=== PATIENT | female | born 1980 | race Caucasian/White ===

== ENCOUNTER 2017-06-30 10:31 | Outpatient (CLI) | payer BC, OTHER ==
[~2017-06-30] VITALS: Ht 165.1 cm; Wt 106.6 kg
[2017-06-30] MEDS ORDERED: NALT1TAB PO (10:45)
[2017-06-30] MEDS ORDERED: AMIT25TA9 PO (10:45)
[2017-06-30] MEDS ORDERED: MULT-35 PO (10:45)
[2017-06-30 10:47] VITALS: BP 116/80
== END 2017-06-30 11:01 | disposition home or self-care (01) ==
LOC: PREOP 10:31
PROVIDERS: ATTEND Podiatrist Foot & Ankle Surgery
DX: Z01.818 Encounter for other preprocedural examination (principal); Z11.2 Encounter for screening for other bacterial diseases; M20.11 Hallux valgus (acquired), right foot
CPT/HCPCS: 87081

== ENCOUNTER 2017-07-25 06:16 | Day surgery (SDC) | payer BC, OTHER ==
[~2017-07-25] VITALS: Ht 165.1 cm; Wt 106.6 kg
[2017-07-25 06:00] VITALS: BP 125/88
[~2017-07-25 06:16] MED LIST: AMIT25TA9 PO; MULT-35 PO; NALT1TAB PO
--- OUTSIDE RECORDS SUMMARY | 2017-07-25 06:20 | XMS REPORT ---
Author Author ARLEEN ESPINOZA [facility] eClinicalWorks Address Unknown Phone Unavailable Care Team Providers Care Dairy Husbandman Name Role Phone ARLEEN ESPINOZA CP Unavailable Allergies, Adverse Reactions, Alerts Substance Reaction Event Type N.K.D.A. Info Not Available Non Drug Allergy Problems Problem Type Condition Code Onset Dates Condition Status Problem Hallux valgus M20.10 Active Problem Chest pain, unspecified R07.9 Active Problem Excessive and frequent menstruation N92.0 Active Problem Headache R51 Active Problem Dysfunction of eustachian tube H69.80 Active Problem Family history of diabetes mellitus Z83.3 Active Problem Generalized anxiety disorder F41.1 Active Problem Major depressive disorder, recurrent, moderate F33.1 Active Problem Obesity, unspecified E66.9 Active Problem Episodic mood disorder F39 Active Assessment History of depression Z86.59 Active Assessment BMI 27.0-27.9,adult Z68.27 Active Assessment Family history of diabetes mellitus Z83.3 Active Assessment Labial abscess N76.4 Active Assessment Well woman exam Z01.419 Active Assessment Headache R51 Active Problem Encounter for dental examination Z01.20 Active Medications Medication Code System Code Instructions Start Date End Date Status Dosage Contrave [facility] 24864275270 8-90MG TAKE TWO TABLETS BY MOUTH TWICE DAILY Amitriptyline HCl [facility] 87102185805 10 MG TAKE ONE TABLET BY MOUTH DAILY Procedures Procedure Coding System Code Date Preventive Care Est Pt. Age 18-39 CPT-4 27001 Aug 28, 2015 Vital Signs Date/Time: Aug 28, 2015 Temperature 97.0 F Weight 193.7 lbs Height 70 in BMI 27.79 Index Blood Pressure Diastolic 76 mmHg Blood Pressure Systolic 122 mmHg Cardiac Monitoring Heart Rate 84 bpm Results No Known Results Summary Purpose eClinicalWorks Submission
--- OUTSIDE RECORDS SUMMARY | 2017-07-25 06:20 | XMS REPORT ---
Author Author MILTON SHELTON [facility] Address Unknown Care Team Providers Care Mobile Solutions Architect Name Role Phone MILTON SHELTON Unavailable PROBLEMS Type Condition ICD9-CM Code [id number] Code Onset Dates Condition Status SNOMED Code Problem Chest pain, unspecified R07.9 Active 24448018 Problem Major depressive disorder, recurrent, moderate F33.1 Active 489889961 Problem Generalized anxiety disorder F41.1 Active 024588583 Problem Dental examination Z01.20 Active 104849193 Problem Headache associated with hormonal factors G44.89 Active 82805098 Problem Family history of diabetes mellitus Z83.3 Active 582680721 Problem Obesity, unspecified E66.9 Active 677206364 Problem Jaw pain, non-TMJ R68.84 Active 312616187 Problem Headache R51 Active 996771554 Problem Hallux valgus M20.10 Active 620444765 Problem Dysfunction of eustachian tube H69.80 Active 68489266 Problem Excessive and frequent menstruation N92.0 Active 903073100 Problem Encounter for dental examination Z01.20 Active 896194105 Problem Episodic mood disorder F39 Active 70972448 ALLERGIES Substance Reaction Event Type Date Status N.K.D.A. Unknown Non Drug Allergy May, Unknown SOCIAL HISTORY No smoking Hx information available PLAN OF CARE Activity Details Follow Up prn Reason:impression for crown #2 VITAL SIGNS Blood pressure systolic 125 mmHg 2016-06-16 Blood pressure diastolic 89 mmHg 2016-06-16 MEDICATIONS Medication Instructions Dosage Frequency Start Date End Date Duration Status Contrave 8-90MG TAKE TWO TABLETS BY MOUTH TWICE DAILY 30 Active Chlorhexidine Gluconate 0.12 % as directed 7 days Active Amitriptyline HCl 10 MG TAKE TWO TABLETS BY MOUTH ONCE DAILY 30 Active Amoxicillin 500 MG Orally 3 times a day 1 capsule 8h 26 May, 2016 Jun, 10 day(s) Active RESULTS No Results PROCEDURES Procedure Date Ordered Related Diagnosis Body Site Dental no charge Jun 16, 2016 IMMUNIZATIONS No Known Immunizations
--- OUTSIDE RECORDS SUMMARY | 2017-07-25 06:20 | XMS REPORT ---
Author Author MILTON SHELTON [facility] Address Unknown Care Team Providers Care Precision Dancer Name Role Phone MILTON SHELTON Unavailable PROBLEMS Type Condition ICD9-CM Code EZA80-BK Code Onset Dates Condition Status SNOMED Code Problem Chest pain, unspecified R07.9 Active 88833646 Problem Major depressive disorder, recurrent, moderate F33.1 Active 693300256 Problem Generalized anxiety disorder F41.1 Active 080208788 Problem Dental examination Z01.20 Active 687681292 Problem Headache associated with hormonal factors G44.89 Active 72669710 Problem Family history of diabetes mellitus Z83.3 Active 691856555 Problem Obesity, unspecified E66.9 Active 686185033 Problem Jaw pain, non-TMJ R68.84 Active 583076063 Problem Headache R51 Active 738832097 Problem Hallux valgus M20.10 Active 642842843 Problem Dysfunction of eustachian tube H69.80 Active 85272150 Problem Excessive and frequent menstruation N92.0 Active 575211888 Problem Encounter for dental examination Z01.20 Active 858224707 Problem Episodic mood disorder F39 Active 70189043 ALLERGIES No Known Allergies SOCIAL HISTORY Never Assessed PLAN OF CARE Activity Details Follow Up 3 Weeks Reason:CROWN SEAT VITAL SIGNS Blood pressure systolic 118 mmHg 2016-09-03 Blood pressure diastolic 81 mmHg 2016-09-03 MEDICATIONS Medication Instructions Dosage Frequency Start Date End Date Duration Status Contrave 8-90MG Orally Twice a day 2 tablets 12h Active Chlorhexidine Gluconate 0.12 % as directed 7 days Active Amitriptyline HCl 10 MG TAKE TWO TABLETS BY MOUTH ONCE DAILY 30 Active RESULTS No Results PROCEDURES Procedure Date Ordered Result Body Site Dental no charge Sep 03, 2016 IMMUNIZATIONS No Known Immunizations MEDICAL (GENERAL) HISTORY Type Description Date Medical History tmj Surgical History Broken RT Leg/ giselle in lower leg 10/2000 Hospitalization History Hospitalization for surgery only
--- OUTSIDE RECORDS SUMMARY | 2017-07-25 06:20 | XMS REPORT ---
Author MADDIE Mondragon Organization eClinicalWorks Address Unknown Phone Unavailable Care Team Providers Care Mva Operator Name Role Phone MADDIE HOLMAN CP Unavailable Allergies, Adverse Reactions, Alerts Substance Reaction Event Type N.K.D.A. Info Not Available Non Drug Allergy Problems Problem Type Condition Code Onset Dates Condition Status Problem Chest pain, unspecified R07.9 Active Problem Generalized anxiety disorder F41.1 Active Problem Major depressive disorder, recurrent, moderate F33.1 Active Problem Jaw pain, non-TMJ R68.84 Active Problem Family history of diabetes mellitus Z83.3 Active Problem Headache associated with hormonal factors G44.89 Active Problem Obesity, unspecified E66.9 Active Problem Episodic mood disorder F39 Active Problem Headache R51 Active Problem Dysfunction of eustachian tube H69.80 Active Assessment Sore throat J02.9 Active Problem Encounter for dental examination Z01.20 Active Problem Hallux valgus M20.10 Active Problem Excessive and frequent menstruation N92.0 Active Medications Medication Code System Code Instructions Start Date End Date Status Dosage Amoxicillin [facility] [address]-94 500 MG Orally 3 times a day Jun 12, 2016 Jun 22, 2016 1 capsule Contrave [facility] 42946946472 8-90MG TAKE TWO TABLETS BY MOUTH TWICE DAILY Amitriptyline HCl [facility] [address]-05 10 MG TAKE TWO TABLETS BY MOUTH ONCE DAILY Procedures Procedure Coding System Code Date Office Visit, Est Pt., Level 3 CPT-4 58108 Jun 12, 2016 STREP A ASSAY W/OPTIC CPT-4 08912 Jun 12, 2016 Vital Signs Date/Time: Jun 12, 2016 Cardiac Monitoring Heart Rate 86 bpm Weight 211 lbs Height 70 in BMI 30.27 Index Blood Pressure Diastolic 68 mmHg Blood Pressure Systolic 116 mmHg Results Name Result Date Reference Range Unit Abnormality Flag STREP A (IN HOUSE) ----STREP A Positive [id number] ----Control + [id number] ----Lot # [id number] ----Exp date 01/16/[id number] Summary Purpose eClinicalWorks Submission
--- OUTSIDE RECORDS SUMMARY | 2017-07-25 06:20 | XMS REPORT ---
Author Author MILTON SHELTON [facility] Address Unknown Care Team Providers Care Medical Billing Specialist Name Role Phone MILTON SHELTON Unavailable PROBLEMS Type Condition ICD9-CM Code TUL88-JJ Code Onset Dates Condition Status SNOMED Code Problem Chest pain, unspecified R07.9 Active 59881181 Problem Major depressive disorder, recurrent, moderate F33.1 Active 021752623 Problem Generalized anxiety disorder F41.1 Active 641722448 Problem Dental examination Z01.20 Active 234229345 Problem Headache associated with hormonal factors G44.89 Active 14412724 Problem Family history of diabetes mellitus Z83.3 Active 979517547 Problem Obesity, unspecified E66.9 Active 286109641 Problem Jaw pain, non-TMJ R68.84 Active 325309170 Problem Headache R51 Active 193839688 Problem Hallux valgus M20.10 Active 417270997 Problem Dysfunction of eustachian tube H69.80 Active 57657067 Problem Excessive and frequent menstruation N92.0 Active 750698471 Problem Encounter for dental examination Z01.20 Active 393795342 Problem Episodic mood disorder F39 Active 63492693 ALLERGIES No Known Allergies SOCIAL HISTORY Never Assessed PLAN OF CARE VITAL SIGNS MEDICATIONS Medication Instructions Dosage Frequency Start Date End Date Duration Status Amitriptyline HCl 10 MG TAKE TWO TABLETS BY MOUTH ONCE DAILY 30 Active Chlorhexidine Gluconate 0.12 % as directed 7 days Active Contrave 8-90MG Orally Twice a day 2 tablets 12h Active RESULTS No Results PROCEDURES Procedure Date Ordered Result Body Site Dental no charge Sep 10, 2016 IMMUNIZATIONS No Known Immunizations MEDICAL (GENERAL) HISTORY Type Description Date Medical History tmj Surgical History Broken RT Leg/ giselle in lower leg 10/2000 Hospitalization History Hospitalization for surgery only
--- OUTSIDE RECORDS SUMMARY | 2017-07-25 06:20 | XMS REPORT ---
Author Author MILTON SHELTON [facility] Address Unknown Care Team Providers Care Social Staff Worker Name Role Phone MILTON SHELTON Unavailable PROBLEMS Type Condition ICD9-CM Code PZY17-DQ Code Onset Dates Condition Status SNOMED Code Problem Chest pain, unspecified R07.9 Active 47461035 Problem Major depressive disorder, recurrent, moderate F33.1 Active 166923912 Problem Generalized anxiety disorder F41.1 Active 987012105 Problem Dental examination Z01.20 Active 159122526 Problem Headache associated with hormonal factors G44.89 Active 81637650 Problem Family history of diabetes mellitus Z83.3 Active 399654603 Problem Obesity, unspecified E66.9 Active 130542332 Problem Jaw pain, non-TMJ R68.84 Active 750102279 Problem Headache R51 Active 396688281 Problem Hallux valgus M20.10 Active 600440147 Problem Dysfunction of eustachian tube H69.80 Active 18707156 Problem Excessive and frequent menstruation N92.0 Active 525190890 Problem Encounter for dental examination Z01.20 Active 131812043 Problem Episodic mood disorder F39 Active 46923795 ALLERGIES Substance Reaction Event Type Date Status N.K.D.A. Unknown Non Drug Allergy Jun, Unknown SOCIAL HISTORY No smoking Hx information available PLAN OF CARE Activity Details Follow Up seat crown #2 Reason: VITAL SIGNS Heart Rate 103 bpm 2016-07-07 Blood pressure systolic 133 mmHg 2016-07-07 Blood pressure diastolic 81 mmHg 2016-07-07 MEDICATIONS Medication Instructions Dosage Frequency Start Date End Date Duration Status Chlorhexidine Gluconate 0.12 % as directed 7 days Active Amitriptyline HCl 10 MG TAKE TWO TABLETS BY MOUTH ONCE DAILY 30 Active Contrave 8-90MG TAKE TWO TABLETS BY MOUTH TWICE DAILY 30 Active RESULTS No Results PROCEDURES Procedure Date Ordered Related Diagnosis Body Site Dental no charge Jul 07, 2016 IMMUNIZATIONS No Known Immunizations
--- OUTSIDE RECORDS SUMMARY | 2017-07-25 06:20 | XMS REPORT ---
Author Author DIPAK WARNER [facility] Address [address] [place] [address] Care Team Providers Care Core Shaper Name Role Phone DIPAK WARNER Unavailable PROBLEMS Type Condition ICD9-CM Code VYO33-JY Code Onset Dates Condition Status SNOMED Code Problem Generalized anxiety disorder F41.1 Active 880577189 Problem Obesity, unspecified E66.9 Active 395815982 Problem Episodic mood disorder F39 Active 76722863 Problem Dental examination Z01.20 Active 363320710 Problem Headache associated with hormonal factors G44.89 Active 81649023 Problem Headache R51 Active 957663162 Problem Dysfunction of eustachian tube H69.80 Active 39053707 Problem Jaw pain, non-TMJ R68.84 Active 264642373 Problem Family history of diabetes mellitus Z83.3 Active 281884550 Problem Hallux valgus M20.10 Active 142252301 Problem Excessive and frequent menstruation N92.0 Active 014778296 Problem Chest pain, unspecified R07.9 Active 95597516 Problem Encounter for dental examination Z01.20 Active 988591805 Problem Major depressive disorder, recurrent, moderate F33.1 Active 023848820 ALLERGIES Substance Reaction Event Type Date Status N.K.D.A. Unknown Non Drug Allergy Jun, Unknown SOCIAL HISTORY No smoking Hx information available PLAN OF CARE Activity Details Follow Up prn Reason: VITAL SIGNS Height 70 in 2016-07-13 Weight 215 lbs 2016-07-13 Temperature 98.2 degrees Fahrenheit 2016-07-13 Heart Rate 100 bpm 2016-07-13 Respiratory Rate 18 2016-07-13 BMI 30.85 kg/m2 2016-07-13 Blood pressure systolic 118 mmHg 2016-07-13 Blood pressure diastolic 78 mmHg 2016-07-13 MEDICATIONS Medication Instructions Dosage Frequency Start Date End Date Duration Status Chlorhexidine Gluconate 0.12 % as directed 7 days Active Amitriptyline HCl 10 mg Orally Once a day 2 tablets 24h Active Contrave 8-90MG Orally Twice a day 2 tablets 12h Active Nystatin-Triamcinolone 279092-8.1 UNIT/GM Externally Twice a day 1 application to affected area 12h Jun, Active RESULTS No Results PROCEDURES Procedure Date Ordered Related Diagnosis Body Site Office Visit, Est Pt., Level 3 Jul 13, 2016 IMMUNIZATIONS No Known Immunizations
--- OUTSIDE RECORDS SUMMARY | 2017-07-25 06:20 | XMS REPORT ---
Author Author ARLEEN ESPINOZA [facility] eClinicalWorks Address Unknown Phone Unavailable Care Team Providers Care Siebel Administrator Name Role Phone ARLEEN ESPINOZA Unavailable Allergies, Adverse Reactions, Alerts Substance Reaction Event Type N.K.D.A. Info Not Available Non Drug Allergy Problems Problem Type Condition Code Onset Dates Condition Status Assessment Vaginal burning N94.9 Active Problem Hallux valgus M20.10 Active Problem Encounter for dental examination Z01.20 Active Problem Obesity, unspecified E66.9 Active Problem Episodic mood disorder F39 Active Problem Dysfunction of eustachian tube H69.80 Active Problem Chest pain, unspecified R07.9 Active Problem Excessive and frequent menstruation N92.0 Active Problem Generalized anxiety disorder F41.1 Active Problem Major depressive disorder, recurrent, moderate F33.1 Active Assessment Screening for malignant neoplasm of cervix Z12.4 Active Assessment Lower abdominal tenderness R10.819 Active Assessment Vaginal discharge N89.8 Active Assessment Vaginal irritation N89.8 Active Medications Medication Code System Code Instructions Start Date End Date Status Dosage Flagyl [facility] [address]-70 500 MG Orally 2 times a day Aug 04, 2015 Aug 11, 2015 1 tablet Amitriptyline HCl [facility] 09720234603 10 MG TAKE ONE TABLET BY MOUTH DAILY Contrave [facility] 65079927439 8-90MG TAKE TWO TABLETS BY MOUTH TWICE DAILY Procedures Procedure Coding System Code Date CULTURE, BACTERIA, OTHER CPT-4 96188 Aug 04, 2015 SPECIMEN HANDLING CPT-4 46391 Aug 04, 2015 URINALYSIS, AUTO, W/O SCOPE CPT-4 62081 Aug 04, 2015 Office Visit, Est Pt., Level 3 CPT-4 53564 Aug 04, 2015 Vital Signs Date/Time: Aug 04, 2015 Temperature 97.3 F Weight 186.8 lbs Height 70 in BMI 26.80 Index Blood Pressure Diastolic 82 mmHg Blood Pressure Systolic 120 mmHg Cardiac Monitoring Heart Rate 82 bpm Results Name Result Date Reference Range Unit Abnormality Flag UA LONG DIP (IN HOUSE) ----JANAE Trace [id number] ----NIT Negative [id number] ----SG >=1.030 20150804 ----KET Negative [id number] ----SHANNAN Negative 20150804 ----GLU Negative 20150804 ----Odor No 20150804 ----pH 6.0 20150804 ----BLO Negative 20150804 ----URO 1.0 20150804 ----Protein Trace 20150804 ----Lot # [id number] ----Exp date [id number] ----Clarity Clear [id number] ----Color Dark Yellow [id number] Summary Purpose eClinicalWorks Submission
--- OUTSIDE RECORDS SUMMARY | 2017-07-25 06:20 | XMS REPORT ---
Author Author DAY CHOWDHURY [facility] Address [address] [place] [address] Care Team Providers Care Fans Clerk Name Role Phone CHOWDHURYCHERI ROCALYN Unavailable PROBLEMS Type Condition ICD9-CM Code EIH88-NM Code Onset Dates Condition Status SNOMED Code Problem Chest pain, unspecified R07.9 Active 10915633 Problem Major depressive disorder, recurrent, moderate F33.1 Active 677363575 Problem Generalized anxiety disorder F41.1 Active 186937253 Problem Dental examination Z01.20 Active 241730294 Problem Headache associated with hormonal factors G44.89 Active 57715432 Problem Family history of diabetes mellitus Z83.3 Active 446428386 Problem Obesity, unspecified E66.9 Active 741388163 Problem Jaw pain, non-TMJ R68.84 Active 417724236 Problem Headache R51 Active 855251443 Problem Hallux valgus M20.10 Active 880431136 Problem Dysfunction of eustachian tube H69.80 Active 24433054 Problem Excessive and frequent menstruation N92.0 Active 339263136 Problem Encounter for dental examination Z01.20 Active 848437514 Problem Episodic mood disorder F39 Active 43517810 ALLERGIES No Known Allergies SOCIAL HISTORY Never Assessed PLAN OF CARE Activity Details Follow Up 6 Months Reason:recare VITAL SIGNS Blood pressure systolic 141 mmHg 2016-08-19 Blood pressure diastolic 84 mmHg 2016-08-19 MEDICATIONS Medication Instructions Dosage Frequency Start Date End Date Duration Status Contrave 8-90MG Orally Twice a day 2 tablets 12h Active Chlorhexidine Gluconate 0.12 % as directed 7 days Active Amitriptyline HCl 10 mg Orally Once a day 2 tablets 24h Active RESULTS No Results PROCEDURES Procedure Date Ordered Result Body Site INTRAORL-PERIAPICAL 1 FILM 47174 Aug 19, 2016 INTRAORL-PERIAPICAL EA ADD FILM Aug 19, 2016 [facility] Employee/Board adjustment Aug 19, 2016 Billing Notes on claim Aug 19, 2016 BITEWINGS - FOUR FILMS Aug 19, 2016 INTRAORL-PERIAPICAL EA ADD FILM Aug 19, 2016 TOPICAL FLUORIDE VARNISH Aug 19, 2016 PROPHYLAXIS - ADULT Aug 19, 2016 IMMUNIZATIONS No Known Immunizations MEDICAL (GENERAL) HISTORY Type Description Date Medical History tmj Surgical History Broken RT Leg/ giselle in lower leg 10/2000 Hospitalization History Hospitalization for surgery only
--- OUTSIDE RECORDS SUMMARY | 2017-07-25 06:20 | XMS REPORT ---
Author Author DONIS DON Organization eClinicalWorks Address Unknown Phone Unavailable Care Team Providers Care Sr Account Executive Name Role Phone DONIS DON CP Unavailable Allergies, Adverse Reactions, Alerts Substance [...] Dysfunction of eustachian tube H69.80 Active Assessment Acute swimmers ear of left side H60.332 Active Problem Encounter for dental examination Z01.20 Active Problem Hallux valgus M20.10 Active Problem Excessive and frequent menstruation N92.0 Active Medications Medication Code System Code Instructions Start Date End Date Status Dosage Cortisporin [facility] [address]-44 3.5-17951-0 Otic Three times a day Mar 01, 2016 4 drops into left ear Contrave [facility] 63758564726 8-90MG TAKE TWO TABLETS BY MOUTH TWICE DAILY Amitriptyline HCl [facility] [address]-00 10 mg Orally Once a day 2 tablets Procedures Procedure Coding System Code Date Office Visit, Est Pt., Level 3 CPT-4 41339 Mar 01, 2016 Vital Signs Date/Time: Mar 01, 2016 Blood Pressure Systolic 110 mmHg Cardiac Monitoring Heart Rate 80 bpm Height 70 in Blood Pressure Diastolic 68 mmHg Results No Known Results Summary Purpose eClinicalWorks Submission
--- OUTSIDE RECORDS SUMMARY | 2017-07-25 06:20 | XMS REPORT ---
Author Author MILTON SHELTON [facility] Address Unknown Care Team Providers Care Air Chief Marshal Name Role Phone MILTON SHELTON Unavailable PROBLEMS Type Condition ICD9-CM Code TQN11-MO Code Onset Dates Condition Status SNOMED Code Problem Chest pain, unspecified R07.9 Active 64337994 Problem Major depressive disorder, recurrent, moderate F33.1 Active 758820149 Problem Generalized anxiety disorder F41.1 Active 107916451 Problem Dental examination Z01.20 Active 730563213 Problem Headache associated with hormonal factors G44.89 Active 66280194 Problem Family history of diabetes mellitus Z83.3 Active 297097309 Problem Obesity, unspecified E66.9 Active 085238646 Problem Jaw pain, non-TMJ R68.84 Active 268284068 Problem Headache R51 Active 877349272 Problem Hallux valgus M20.10 Active 004364659 Problem Dysfunction of eustachian tube H69.80 Active 75414745 Problem Excessive and frequent menstruation N92.0 Active 157643471 Problem Encounter for dental examination Z01.20 Active 909806304 Problem Episodic mood disorder F39 Active 59515945 ALLERGIES Substance Reaction Event Type Date Status N.K.D.A. Unknown Non Drug Allergy Jul, Unknown SOCIAL HISTORY No smoking Hx information available PLAN OF CARE Activity Details Follow Up prn Reason:Re-Prep #2 VITAL SIGNS MEDICATIONS Medication Instructions Dosage Frequency Start Date End Date Duration Status Contrave 8-90MG Orally Twice a day 2 tablets 12h Active Nystatin-Triamcinolone 661573-7.1 UNIT/GM Externally Twice a day 1 application to affected area 12h Jun, Active Chlorhexidine Gluconate 0.12 % as directed 7 days Active Amitriptyline HCl 10 mg Orally Once a day 2 tablets 24h Active RESULTS No Results PROCEDURES Procedure Date Ordered Related Diagnosis Body Site Dental no charge Jul 28, 2016 IMMUNIZATIONS No Known Immunizations
--- OUTSIDE RECORDS SUMMARY | 2017-07-25 06:20 | XMS REPORT ---
Author Author ANDRE JON [facility] eClinicalWorks Address Unknown Phone Unavailable Care Team Providers Care Automat Watcher Name Role Phone ANDRE JON CP Unavailable Allergies, Adverse Reactions, Alerts Substance Reaction Event Type N.K.D.A. Info Not Available Non Drug Allergy Problems Problem Type Condition Code Onset Dates Condition Status Problem Major depressive disorder, recurrent episode, moderate 296.32 Active Problem Generalized anxiety disorder 300.02 Active Problem Unspecified disease of the jaws 526.9 Active Problem Dysfunction of Eustachian tube 381.81 Active Problem Simple or unspecified chronic serous otitis media 381.10 Active Problem Encounter for dental examination Z01.20 Active Problem Obesity, unspecified 278.00 Active Problem Unspecified episodic mood disorder 296.90 Active Problem Screening for malignant neoplasm of the cervix V76.2 Active Problem Routine general medical examination at health care facility V70.0 Active Assessment Encounter for dental examination Z01.20 Active Problem Sprain and strain of unspecified site of foot 845.10 Active Problem Excessive or frequent menstruation 626.2 Active Problem Hallux valgus (acquired) 735.0 Active Problem Chest pain, unspecified 786.50 Active Problem Urinary tract infection, site not specified 599.0 Active Problem Other screening breast examination V76.19 Active Medications Medication Code System Code Instructions Start Date End Date Status Dosage Contrave [facility] [id number] 8-90MG TAKE TWO TABLETS BY MOUTH TWICE DAILY Amitriptyline HCl [facility] [id number] 10 MG TAKE ONE TABLET BY MOUTH DAILY Procedures Procedure Coding System Code Date BITEWINGS - FOUR FILMS CPT-4 D0274 Jul 02, 2015 PANORAMIC FILM SEE ALSO CODE 82692 CPT-4 D0330 Jul 02, 2015 PERIODIC ORAL EXAMINATION CPT-4 D0120 Jul 02, 2015 TOPICAL FLUORIDE VARNISH CPT-4 D1206 Jul 02, 2015 PROPHYLAXIS - ADULT CPT-4 D1110 Jul 02, 2015 Vital Signs Date/Time: Jul 02, 2015 Blood Pressure Diastolic 84 mmHg Blood Pressure Systolic 118 mmHg Cardiac Monitoring Heart Rate 84 bpm Results No Known Results Summary Purpose eClinicalWorks Submission
--- OUTSIDE RECORDS SUMMARY | 2017-07-25 06:21 | XMS REPORT | Continuity of Care Document ---
Author Author [facility] Address Unknown Phone Unavailable Allergies There is no data. Medications There is no data. Problems Date Dx Coded Attending Type Code Diagnosis Diagnosed By 07/01/2009 DIPAK WARNER APRN 311 MO DEPRESS NOS 07/01/2009 311 MO DEPRESS NOS 07/01/2009 311 MO DEPRESS NOS 07/01/2009 311 MO DEPRESS NOS 07/01/2009 311 MO DEPRESS NOS 07/01/2009 DIPAK WARNER APRN 311 MO DEPRESS NOS 07/01/2009 DAYNA BLACK APRN 311 MO DEPRESS NOS 07/01/2009 MADDIE HOLMAN APRN 311 MO DEPRESS NOS 07/01/2009 ALAN GUTIERREZ MD 311 MO DEPRESS NOS 07/01/2009 FORBES DO, RADHIKA K 311 MO DEPRESS NOS 07/01/2009 NILTON ROBB APRN A 311 MO DEPRESS NOS 07/01/2009 FER RUCKER APRN 311 MO DEPRESS NOS 07/01/2009 FORBES DO, RADHIKA K 311 MO DEPRESS NOS 07/01/2009 FORBES DO, RADHIKA K 311 MO DEPRESS NOS 07/01/2009 DIPAK WARNER APRN 311 MO DEPRESS NOS 06/24/2010 DIPAK WARNER APRN 782.0 tingling (paresthesia) 06/24/2010 DIPAK WARNER APRN 785.1 PALPITATIONS 06/24/2010 782.0 tingling ( paresthesia) 06/24/2010 785.1 PALPITATIONS 06/24/2010 782.0 tingling ( paresthesia) 06/24/2010 785.1 PALPITATIONS 06/24/2010 782.0 tingling ( paresthesia) 06/24/2010 785.1 PALPITATIONS 06/24/2010 782.0 TINGLING ( PARESTHESIA) 06/24/2010 785.1 PALPITATIONS 06/24/2010 ALANA MEDICAL CERTIFICATION SPECIALIST, DIPAK S 782.0 tingling (paresthesia) 06/24/2010 FRANKY WARNER APRNNDA S 785.1 PALPITATIONS 06/24/2010 WAYNE ANTOINETTE DAYNA STACK 782.0 TINGLING (PARESTHESIA) 06/24/2010 WAYNE ANTOINETTE DAYNA STACK 785.1 PALPITATIONS 06/24/2010 MADDIE HOLMAN APRN 782.0 TINGLING (PARESTHESIA) 06/24/2010 MADDIE HOLMAN APRN 785.1 PALPITATIONS 06/24/2010 ALAN GUTIERREZ MD 782.0 TINGLING (PARESTHESIA) 06/24/2010 ALAN GUTIERREZ MD 785.1 PALPITATIONS 06/24/2010 FORBES DO, RADHIKA K 782.0 TINGLING (PARESTHESIA) 06/24/2010 FORBES DO, RADHIKA K 785.1 PALPITATIONS 06/24/2010 CEZAR APRN, NILTON A 782.0 TINGLING (PARESTHESIA) 06/24/2010 CEZAR APRN, NILTON A 785.1 PALPITATIONS 06/24/2010 RUCKER MEDICAL CERTIFICATION SPECIALIST, FER R 782.0 TINGLING (PARESTHESIA) 06/24/2010 RUCKER MEDICAL CERTIFICATION SPECIALIST, FER R 785.1 PALPITATIONS 06/24/2010 FORBES DO, RADHIKA K 782.0 TINGLING (PARESTHESIA) 06/24/2010 FORBES DO, RADHIKA K 785.1 PALPITATIONS 06/24/2010 FORBES DO, RADHIKA K 782.0 TINGLING (PARESTHESIA) 06/24/2010 FORBES DO, RADHKIA K 785.1 PALPITATIONS 06/24/2010 ALANA CURRY DIPAK S 782.0 TINGLING (PARESTHESIA) 06/24/2010 FRANKY WARNER APRNNDA S 785.1 PALPITATIONS 08/10/2010 FRANKY WARNER APRNNDA S 346.10 MIGRAINE WITHOUT AURA WITHOUT MENTION OF INTRACTABLE MIGRAINE WITHOUT MENTION OF STATUS MIGRAINOSUS 08/10/2010 FRANKY WARNER APRNNDA S 465.9 UPPER RESPIRATORY INFECTION 08/10/2010 346.10 MIGRAINE WITHOUT AURA WITHOUT MENTION OF INTRACTABLE MIGRAINE WITHOUT MENTION OF STATUS MIGRAINOSUS 08/10/2010 465.9 UPPER RESPIRATORY INFECTION 08/10/2010 346.10 MIGRAINE WITHOUT AURA WITHOUT MENTION OF INTRACTABLE MIGRAINE WITHOUT MENTION OF STATUS MIGRAINOSUS 08/10/2010 465.9 UPPER RESPIRATORY INFECTION 08/10/2010 346.10 MIGRAINE WITHOUT AURA WITHOUT MENTION OF INTRACTABLE MIGRAINE WITHOUT MENTION OF STATUS MIGRAINOSUS 08/10/2010 465.9 UPPER RESPIRATORY INFECTION 08/10/2010 346.10 MIGRAINE WITHOUT AURA WITHOUT MENTION OF INTRACTABLE MIGRAINE WITHOUT MENTION OF STATUS MIGRAINOSUS 08/10/2010 465.9 UPPER RESPIRATORY INFECTION 08/10/2010 DIPAK WARNER APRN S 346.10 MIGRAINE WITHOUT AURA WITHOUT MENTION OF INTRACTABLE MIGRAINE WITHOUT MENTION OF STATUS MIGRAINOSUS 08/10/2010 DIPAK WARNER APRN S 465.9 UPPER RESPIRATORY INFECTION 08/10/2010 WAYNE CURRY DAYNA STACK 346.10 MIGRAINE WITHOUT AURA WITHOUT MENTION OF INTRACTABLE MIGRAINE WITHOUT MENTION OF STATUS MIGRAINOSUS 08/10/2010 WAYNE CURRY DAYNA STACK 465.9 UPPER RESPIRATORY INFECTION 08/10/2010 MADDIE HOLMAN APRN 346.10 MIGRAINE WITHOUT AURA WITHOUT MENTION OF INTRACTABLE MIGRAINE WITHOUT MENTION OF STATUS MIGRAINOSUS 08/10/2010 MADDIE HOLMAN APRN 465.9 UPPER RESPIRATORY INFECTION 08/10/2010 ALAN GUTIERREZ MD 346.10 MIGRAINE WITHOUT AURA WITHOUT MENTION OF INTRACTABLE MIGRAINE WITHOUT MENTION OF STATUS MIGRAINOSUS 08/10/2010 ALAN GUTIERREZ MD 465.9 UPPER RESPIRATORY INFECTION 08/10/2010 RADHIKA FORBES DO 346.10 MIGRAINE WITHOUT AURA WITHOUT MENTION OF INTRACTABLE MIGRAINE WITHOUT MENTION OF STATUS MIGRAINOSUS 08/10/2010 RADHIKA FORBES DO K 465.9 UPPER RESPIRATORY INFECTION 08/10/2010 NILTON ROBB APRN A 346.10 MIGRAINE WITHOUT AURA WITHOUT MENTION OF INTRACTABLE MIGRAINE WITHOUT MENTION OF STATUS MIGRAINOSUS 08/10/2010 NILTON ROBB APRN A 465.9 UPPER RESPIRATORY INFECTION 08/10/2010 FER RUCKER APRN R 346.10 MIGRAINE WITHOUT AURA WITHOUT MENTION OF INTRACTABLE MIGRAINE WITHOUT MENTION OF STATUS MIGRAINOSUS 08/10/2010 FER RUCKER APRN R 465.9 UPPER RESPIRATORY INFECTION 08/10/2010 RADHIKA FORBES DO K 346.10 MIGRAINE WITHOUT AURA WITHOUT MENTION OF INTRACTABLE MIGRAINE WITHOUT MENTION OF STATUS MIGRAINOSUS 08/10/2010 RADHIKA FORBES DO K 465.9 UPPER RESPIRATORY INFECTION 08/10/2010 ANDREI FARAH, RADHIKA K 346.10 MIGRAINE WITHOUT AURA WITHOUT MENTION OF INTRACTABLE MIGRAINE WITHOUT MENTION OF STATUS MIGRAINOSUS 08/10/2010 FORBES GRETA FARAHA K 465.9 UPPER RESPIRATORY INFECTION 08/10/2010 FRANKY WARNER APRNNDA S 346.10 MIGRAINE WITHOUT AURA WITHOUT MENTION OF INTRACTABLE MIGRAINE WITHOUT MENTION OF STATUS MIGRAINOSUS 08/10/2010 CHAPIS WARNER APRNA S 465.9 UPPER RESPIRATORY INFECTION 09/24/2010 FRANKY WARNER APRNNDA S 786.2 COUGH 09/24/2010 786.2 COUGH 09/24/2010 786.2 COUGH 09/24/2010 786.2 COUGH 09/24/2010 786.2 COUGH 09/24/2010 DIPAK WARNER APRN S 786.2 COUGH 09/24/2010 DAYNA BLACK APRN 786.2 COUGH 09/24/2010 RIVER MEDICAL CERTIFICATION SPECIALISTMADDIE Segura 786.2 COUGH 09/24/2010 ALAN GUTIERREZ MD 786.2 COUGH 09/24/2010 GRETA FORBES DOA K 786.2 COUGH 09/24/2010 CEZAR MEDICAL CERTIFICATION SPECIALIST, NILTON A 786.2 COUGH 09/24/2010 CHAIM MEDICAL CERTIFICATION SPECIALIST, FER Romero 786.2 COUGH 09/24/2010 ANDREI FARAH, RADHIKA K 786.2 COUGH 09/24/2010 FORBES , RADHIKA K 786.2 COUGH 09/24/2010 CHAPIS WARNER APRNA S 786.2 COUGH 12/22/2010 CHAPIS WARNER APRNA S 381.81 EUSTACHIAN TUBE DYSFUNCTION 12/22/2010 CHAPIS WARNER APRNA S 388.70 OTALGIA 12/22/2010 381.81 EUSTACHIAN TUBE DYSFUNCTION 12/22/2010 388.70 OTALGIA 12/22/2010 381.81 EUSTACHIAN TUBE DYSFUNCTION 12/22/2010 388.70 OTALGIA 12/22/2010 381.81 EUSTACHIAN TUBE DYSFUNCTION 12/22/2010 388.70 OTALGIA 12/22/2010 381.81 EUSTACHIAN TUBE DYSFUNCTION 12/22/2010 388.70 OTALGIA 12/22/2010 CHAPIS WARNER APRNA S 381.81 EUSTACHIAN TUBE DYSFUNCTION 12/22/2010 DIPAK WARNER APRN 388.70 OTALGIA 12/22/2010 DAYNA BLACK APRN 381.81 EUSTACHIAN TUBE DYSFUNCTION 12/22/2010 DAYNA BLACK APRN 388.70 OTALGIA 12/22/2010 MADDIE HOLMAN APRN 381.81 EUSTACHIAN TUBE DYSFUNCTION 12/22/2010 MADDIE HOLMAN APRN 388.70 OTALGIA 12/22/2010 ALAN GUTIERREZ MD 381.81 EUSTACHIAN TUBE DYSFUNCTION 12/22/2010 ALAN GUTIERREZ MD 388.70 OTALGIA 12/22/2010 FORBES DO, RADHIKA K 381.81 EUSTACHIAN TUBE DYSFUNCTION 12/22/2010 FORBES DO, RADHIKA K 388.70 OTALGIA 12/22/2010 CEZAR CURRY NILTON A 381.81 EUSTACHIAN TUBE DYSFUNCTION 12/22/2010 CEZAR CURRY NILTON A 388.70 OTALGIA 12/22/2010 CHAIM CURRY FER R 381.81 EUSTACHIAN TUBE DYSFUNCTION 12/22/2010 CHAIM CURRY FER R 388.70 OTALGIA 12/22/2010 FORBES DO, RADHIKA K 381.81 EUSTACHIAN TUBE DYSFUNCTION 12/22/2010 FORBES DO, RADHIKA K 388.70 OTALGIA 12/22/2010 FORBES DO, RADHIKA K 381.81 EUSTACHIAN TUBE DYSFUNCTION 12/22/2010 FORBES DO, RADHIKA K 388.70 OTALGIA 12/22/2010 DIPAK WARNER APRN S 381.81 EUSTACHIAN TUBE DYSFUNCTION 12/22/2010 DIPAK WARNER APRN S 388.70 OTALGIA 04/08/2011 DIPAK WARNER APRN S 300.00 AN ANXIETY UNSPEC 04/08/2011 300.00 AN ANXIETY UNSPEC 04/08/2011 300.00 AN ANXIETY UNSPEC 04/08/2011 300.00 AN ANXIETY UNSPEC 04/08/2011 300.00 AN ANXIETY UNSPEC 04/08/2011 DIPAK WARNER APRN 300.00 AN ANXIETY UNSPEC 04/08/2011 DAYNA BLACK APRN 300.00 AN ANXIETY UNSPEC 04/08/2011 MADDIE HOLMAN APRN 300.00 AN ANXIETY UNSPEC 04/08/2011 BRENDA FARFAN, ALAN 300.00 AN ANXIETY UNSPEC 04/08/2011 RADHIKA FORBES DO K 300.00 AN ANXIETY UNSPEC 04/08/2011 NILTON ROBB APRN A 300.00 AN ANXIETY UNSPEC 04/08/2011 FER RUCKER APRN 300.00 AN ANXIETY UNSPEC 04/08/2011 RADHIKA FORBES DO K 300.00 AN ANXIETY UNSPEC 04/08/2011 RADHIKA FORBES DO K 300.00 AN ANXIETY UNSPEC 04/08/2011 DIPAK WARNER APRN S 300.00 AN ANXIETY UNSPEC 07/15/2011 CHAPIS WARNER APRNA S 466.0 BRONCHITIS, ACUTE 07/15/2011 466.0 BRONCHITIS, ACUTE 07/15/2011 466.0 BRONCHITIS, ACUTE 07/15/2011 466.0 BRONCHITIS, ACUTE 07/15/2011 466.0 BRONCHITIS, ACUTE 07/15/2011 DIPAK WARNER APRN S 466.0 BRONCHITIS, ACUTE 07/15/2011 DAYNA BLACK APRN 466.0 BRONCHITIS, ACUTE 07/15/2011 MADDIE HOLMAN APRN 466.0 BRONCHITIS, ACUTE 07/15/2011 BRENDA FARFAN, ALAN 466.0 BRONCHITIS, ACUTE 07/15/2011 RADHIKA FORBES DO K 466.0 BRONCHITIS, ACUTE 07/15/2011 NILTON ROBB APRN 466.0 BRONCHITIS, ACUTE 07/15/2011 FER RUCKER APRN 466.0 BRONCHITIS, ACUTE 07/15/2011 RADHIKA FORBES DO K 466.0 BRONCHITIS, ACUTE 07/15/2011 RADHIKA FORBES DO K 466.0 BRONCHITIS, ACUTE 07/15/2011 CHAPIS WARNER APRNA S 466.0 BRONCHITIS, ACUTE 08/23/2011 CHAPIS WARNER APRNA S 296.90 MOOD DISORDER NOS 08/23/2011 DIPAK WARNER APRN S 300.02 AN GEN ANXIETY 08/23/2011 296.90 MOOD DISORDER NOS 08/23/2011 300.02 AN GEN ANXIETY 08/23/2011 296.90 MOOD DISORDER NOS 08/23/2011 300.02 AN GEN ANXIETY 08/23/2011 296.90 MOOD DISORDER NOS 08/23/2011 300.02 AN GEN ANXIETY 08/23/2011 296.90 MOOD DISORDER NOS 08/23/2011 300.02 AN GEN ANXIETY 08/23/2011 DIPAK WARNER APRN S 296.90 MOOD DISORDER NOS 08/23/2011 DIPAK WARNER APRN S 300.02 AN GEN ANXIETY 08/23/2011 BLACK APRN, DAYNA STACK 296.90 MOOD DISORDER NOS 08/23/2011 BLACK APRN, DAYNA STACK 300.02 AN GEN ANXIETY 08/23/2011 MADDIE HOLMAN APRN 296.90 MOOD DISORDER NOS 08/23/2011 MADDIE HOLMAN APRN 300.02 AN GEN ANXIETY 08/23/2011 ALAN GUTIERREZ MD 296.90 MOOD DISORDER NOS 08/23/2011 ALAN GUTIERREZ MD 300.02 AN GEN ANXIETY 08/23/2011 FORBES DO RADHIKA K 296.90 MOOD DISORDER NOS 08/23/2011 FORBES DO, RADHIKA K 300.02 AN GEN ANXIETY 08/23/2011 CEZAR CURRY, NILTON A 296.90 MOOD DISORDER NOS 08/23/2011 CEZAR CURRY NILTON A 300.02 AN GEN ANXIETY 08/23/2011 CHAIM CURRY FER R 296.90 MOOD DISORDER NOS 08/23/2011 RUCKER ANTOINETTE, FER R 300.02 AN GEN ANXIETY 08/23/2011 FORBES DO, RADHIKA K 296.90 MOOD DISORDER NOS 08/23/2011 FORBES DO, RADHIKA K 300.02 AN GEN ANXIETY 08/23/2011 FORBES DO, RADHIKA K 296.90 MOOD DISORDER NOS 08/23/2011 FORBES DO, RADHIKA K 300.02 AN GEN ANXIETY 08/23/2011 DIPAK WARNER APRN S 296.90 MOOD DISORDER NOS 08/23/2011 DIPAK WARNER APRN S 300.02 AN GEN ANXIETY 09/17/2011 DIPAK WARNER APRN S V76.2 CERVICAL CANCER SCREENING (PAP SMEAR) 09/17/2011 V76.2 CERVICAL CANCER SCREENING (PAP SMEAR) 09/17/2011 V76.2 CERVICAL CANCER SCREENING (PAP SMEAR) 09/17/2011 V76.2 CERVICAL CANCER SCREENING (PAP SMEAR) 09/17/2011 V76.2 CERVICAL CANCER SCREENING (PAP SMEAR) 09/17/2011 DIPAK WARNER APRN V76.2 CERVICAL CANCER SCREENING (PAP SMEAR) 09/17/2011 DAYNA BLACK APRN V76.2 CERVICAL CANCER SCREENING (PAP SMEAR) 09/17/2011 MADDIE HOLMAN APRN V76.2 CERVICAL CANCER SCREENING (PAP SMEAR) 09/17/2011 ALAN GUTIERREZ MD V76.2 CERVICAL CANCER SCREENING (PAP SMEAR) 09/17/2011 RADHIKA FORBES DO V76.2 CERVICAL CANCER SCREENING (PAP SMEAR) 09/17/2011 NILTON ROBB APRN V76.2 CERVICAL CANCER SCREENING (PAP SMEAR) 09/17/2011 FER RUCKER APRN V76.2 CERVICAL CANCER SCREENING (PAP SMEAR) 09/17/2011 RADHIKA FORBES DO V76.2 CERVICAL CANCER SCREENING (PAP SMEAR) 09/17/2011 RADHIKA FORBES DO V76.2 CERVICAL CANCER SCREENING (PAP SMEAR) 09/17/2011 DIPAK WARNER APRN V76.2 CERVICAL CANCER SCREENING (PAP SMEAR) 01/21/2012 DIPAK WARNER APRN 526.9 UNSPECIFIED DISEASE OF THE JAWS 01/21/2012 526.9 UNSPECIFIED DISEASE OF THE JAWS 01/21/2012 526.9 UNSPECIFIED DISEASE OF THE JAWS 01/21/2012 526.9 UNSPECIFIED DISEASE OF THE JAWS 01/21/2012 526.9 UNSPECIFIED DISEASE OF THE JAWS 01/21/2012 DIPAK WARNER APRN S 526.9 UNSPECIFIED DISEASE OF THE JAWS 01/21/2012 DAYNA BLACK APRN 526.9 UNSPECIFIED DISEASE OF THE JAWS 01/21/2012 MADDIE HOLMAN APRN 526.9 UNSPECIFIED DISEASE OF THE JAWS 01/21/2012 ALAN GUTIERREZ MD 526.9 UNSPECIFIED DISEASE OF THE JAWS 01/21/2012 RADHIKA FORBES DO 526.9 UNSPECIFIED DISEASE OF THE JAWS 01/21/2012 NILTON ROBB APRN 526.9 UNSPECIFIED DISEASE OF THE JAWS 01/21/2012 FER RUCKER APRN 526.9 UNSPECIFIED DISEASE OF THE JAWS 01/21/2012 RADHIKA FORBES DO K 526.9 UNSPECIFIED DISEASE OF THE JAWS 01/21/2012 RADHIKA FORBES DO 526.9 UNSPECIFIED DISEASE OF THE JAWS 01/21/2012 DIPAK WARNER APRN S 526.9 UNSPECIFIED DISEASE OF THE JAWS 03/29/2012 FRANKY WARNER APRNNDA S 786.50 CHEST PAIN 03/29/2012 786.50 CHEST PAIN 03/29/2012 786.50 CHEST PAIN 03/29/2012 786.50 CHEST PAIN 03/29/2012 786.50 CHEST PAIN 03/29/2012 CHAPIS WARNER APRNA S 786.50 CHEST PAIN 03/29/2012 WAYNE CURRY DAYNA STACK 786.50 CHEST PAIN 03/29/2012 MADDIE HOLMAN APRN 786.50 CHEST PAIN 03/29/2012 ALAN GUTIERREZ MD 786.50 CHEST PAIN 03/29/2012 FORBES DO, RADHIKA K 786.50 CHEST PAIN 03/29/2012 NILTON ROBB APRN A 786.50 CHEST PAIN 03/29/2012 FER RUCKER APRN R 786.50 CHEST PAIN 03/29/2012 FORBES DO, RADHIKA K 786.50 CHEST PAIN 03/29/2012 FORBES DO, RADHIKA K 786.50 CHEST PAIN 03/29/2012 HCAPIS WARNER APRNA S 786.50 CHEST PAIN 06/15/2012 CHAPIS WARNER APRNA S 599.0 URINARY TRACT INFECTION 06/15/2012 599.0 URINARY TRACT INFECTION 06/15/2012 599.0 URINARY TRACT INFECTION 06/15/2012 599.0 URINARY TRACT INFECTION 06/15/2012 599.0 URINARY TRACT INFECTION 06/15/2012 CHAPIS WARNER APRNA S 599.0 URINARY TRACT INFECTION 06/15/2012 WAYNE CURRY DAYNA SEDA 599.0 URINARY TRACT INFECTION 06/15/2012 MADDIE HOLMAN APRN 599.0 URINARY TRACT INFECTION 06/15/2012 ALAN GUTIERREZ MD 599.0 URINARY TRACT INFECTION 06/15/2012 FORBES DO, RADHIKA K 599.0 URINARY TRACT INFECTION 06/15/2012 NILTON ROBB APRN A 599.0 URINARY TRACT INFECTION 06/15/2012 FER RUCKER APRN R 599.0 URINARY TRACT INFECTION 06/15/2012 FORBES DO, RADHIKA K 599.0 URINARY TRACT INFECTION 06/15/2012 FORBES DO, RADHIKA K 599.0 URINARY TRACT INFECTION 06/15/2012 FRANKY AWRNER APRNNDA S 599.0 URINARY TRACT INFECTION 09/25/2012 V76.19 OTHER SCREENING BREAST EXAMINATION 09/25/2012 V76.19 OTHER SCREENING BREAST EXAMINATION 09/25/2012 V76.19 OTHER SCREENING BREAST EXAMINATION 09/25/2012 V76.19 OTHER SCREENING BREAST EXAMINATION 09/25/2012 DAYNA BLACK APRNH V76.19 OTHER SCREENING BREAST EXAMINATION 09/25/2012 MADDIE HOLMAN APRN V76.19 OTHER SCREENING BREAST EXAMINATION 09/25/2012 ALAN GUTIERREZ MD V76.19 OTHER SCREENING BREAST EXAMINATION 09/25/2012 ANDREI FARAH RADHIKA K V76.19 OTHER SCREENING BREAST EXAMINATION 09/25/2012 CEZAR CURRY NILTON A V76.19 OTHER SCREENING BREAST EXAMINATION 09/25/2012 FER RUCKER APRN V76.19 OTHER SCREENING BREAST EXAMINATION 09/25/2012 FORBES DO RADHIKA K V76.19 OTHER SCREENING BREAST EXAMINATION 09/25/2012 FORBES DO, RADHIKA K V76.19 OTHER SCREENING BREAST EXAMINATION 09/25/2012 CHAPIS WARNER APRNA S V76.19 OTHER SCREENING BREAST EXAMINATION 10/24/2012 296.32 MO DEPRESSIVE RECURRENT MODERATE 10/24/2012 296.32 MO DEPRESSIVE RECURRENT MODERATE 10/24/2012 296.32 MO DEPRESSIVE RECURRENT MODERATE 10/24/2012 WAYNE CURRY DAYNA STACK 296.32 MO DEPRESSIVE RECURRENT MODERATE 10/24/2012 MADDIE HOLMAN APRN 296.32 MO DEPRESSIVE RECURRENT MODERATE 10/24/2012 ALAN GUTIERREZ MD 296.32 MO DEPRESSIVE RECURRENT MODERATE 10/24/2012 FORBES DO, RADHIKA K 296.32 MO DEPRESSIVE RECURRENT MODERATE 10/24/2012 CEZAR CURRY NILTON A 296.32 MO DEPRESSIVE RECURRENT MODERATE 10/24/2012 GUSTAVO RUCKER APRNIA R 296.32 MO DEPRESSIVE RECURRENT MODERATE 10/24/2012 FORBES DO, RADHIKA K 296.32 MO DEPRESSIVE RECURRENT MODERATE 10/24/2012 FORBES DO, RADHIKA K 296.32 MO DEPRESSIVE RECURRENT MODERATE 10/24/2012 ALANA CURRY DIPAK S 296.32 MO DEPRESSIVE RECURRENT MODERATE 12/06/2012 845.10 UNSPECIFIED SITE OF FOOT SPRAIN 12/06/2012 845.10 UNSPECIFIED SITE OF FOOT SPRAIN 12/06/2012 WAYNE ANTOINETTEDAYNA 845.10 UNSPECIFIED SITE OF FOOT SPRAIN 12/06/2012 MADDIE HOLMAN APRN 845.10 UNSPECIFIED SITE OF FOOT SPRAIN 12/06/2012 ALAN GUTIERREZ MD 845.10 UNSPECIFIED SITE OF FOOT SPRAIN 12/06/2012 ANDREI FARAH RADHIKA K 845.10 UNSPECIFIED SITE OF FOOT SPRAIN 12/06/2012 NILTON ROBB APRN A 845.10 UNSPECIFIED SITE OF FOOT SPRAIN 12/06/2012 FER RUCKER APRN R 845.10 UNSPECIFIED SITE OF FOOT SPRAIN 12/06/2012 FORBES DO RADHIKA K 845.10 UNSPECIFIED SITE OF FOOT SPRAIN 12/06/2012 FORBES DO RADHIKA K 845.10 UNSPECIFIED SITE OF FOOT SPRAIN 12/06/2012 DIPAK WARNER APRN S 845.10 UNSPECIFIED SITE OF FOOT SPRAIN 05/16/2013 MADDIE HOLMAN APRN 735.0 HALLUX VALGUS (ACQUIRED) 05/16/2013 ALAN GUTIERREZ MD 735.0 HALLUX VALGUS (ACQUIRED) 05/16/2013 GRETA FORBES DOA K 735.0 HALLUX VALGUS (ACQUIRED) 05/16/2013 NILTON ROBB APRN A 735.0 HALLUX VALGUS (ACQUIRED) 05/16/2013 FER RUCKER APRN R 735.0 HALLUX VALGUS (ACQUIRED) 05/16/2013 GRETA FORBES DOA K 735.0 HALLUX VALGUS (ACQUIRED) 05/16/2013 FORBES DO RADHIKA K 735.0 HALLUX VALGUS (ACQUIRED) 05/16/2013 CHAPIS WARNER APRNA S 735.0 HALLUX VALGUS (ACQUIRED) 08/06/2013 NILTON ROBB APRN A 626.2 MENORRHAGIA 08/06/2013 FER RUCKER APRN R 626.2 MENORRHAGIA 08/06/2013 FORBES DO RADHIKA K 626.2 MENORRHAGIA 08/06/2013 FORBES DO RADHIKA K 626.2 MENORRHAGIA 08/06/2013 DIPAK WARNER APRN S 626.2 MENORRHAGIA 12/17/2013 FER RUCKER APRN R 381.10 CHRONIC SEROUS OTITIS MEDIA SIMPLE OR UNSPECIFIED 12/17/2013 FER RUCKER APRN R 381.81 EUSTACHIAN TUBE DYSFUNCTION 12/17/2013 FORBES DO RADHIKA K 381.10 CHRONIC SEROUS OTITIS MEDIA SIMPLE OR UNSPECIFIED 12/17/2013 OFRBES DO RADHIKA K 381.81 EUSTACHIAN TUBE DYSFUNCTION 12/17/2013 FORBES DO RADHIKA K 381.10 CHRONIC SEROUS OTITIS MEDIA SIMPLE OR UNSPECIFIED 12/17/2013 FORBES DO RADHIKA K 381.81 EUSTACHIAN TUBE DYSFUNCTION 12/17/2013 CHAPIS WARNER APRNA S 381.10 CHRONIC SEROUS OTITIS MEDIA SIMPLE OR UNSPECIFIED 12/17/2013 DIPAK WARNER APRN S 381.81 EUSTACHIAN TUBE DYSFUNCTION 03/22/2014 ANDREI FARAH RADHIKA K 278.00 OBESITY UNSPECIFIED 03/22/2014 FORBES DO RADHIKA K V70.0 ROUTINE GENERAL MEDICAL EXAMINATION AT A HEALTH CARE FACILITY 03/22/2014 GRETA FORBES DOA K 278.00 OBESITY UNSPECIFIED 03/22/2014 ANDREI FARAH RADHIKA K V70.0 ROUTINE GENERAL MEDICAL EXAMINATION AT A HEALTH CARE FACILITY 03/22/2014 DIPAK WARNER APRN S 278.00 OBESITY UNSPECIFIED 03/22/2014 DIPAK WARNER APRN S V70.0 ROUTINE GENERAL MEDICAL EXAMINATION AT A HEALTH CARE FACILITY Procedures Code Description [place] [address] PSYCH IND W/MED CK 20 05/05/2012 55474 PSYCH IND W/MED CK 20 06/15/2012 09136 UA W/ CULTURE IF INDICATED 06/15/2012 92113 CULTURE URINE 06/17/2012 PODIATRY DAILY BECKWITH 05/16/2013 02994 XRAY FOOT RIGHT 2 VIEWS 07/06/2013 49239 TB TEST INTRADERMAL 12/11/2013 19972 OXIMETRY 12/17/2013 14206 ROUTINE VENIPUNCTURE 03/25/2014 33476 LIPID PANEL 03/25/2014 81800 CBC 03/25/2014 19430 CMP 03/25/2014 6369224 GFR CALC (RESULT ONLY) 03/25/2014 Results There is no data. Encounters ACCT No. Visit Date/Time Discharge Status Pt. Type Provider Facility Loc./Unit Complaint [id number] 10/03/2014 16:17:00 10/03/2014 23:59:59 CLS Outpatient DIPAK WARNER APRN [id number] 03/25/2014 08:00:00 03/25/2014 23:59:59 CLS Outpatient RADHIKA FORBES DO [id number] 03/22/2014 11:23:00 03/22/2014 23:59:59 CLS Outpatient RADHIKA FORBES DO [id number] 12/17/2013 12:46:00 12/17/2013 23:59:59 CLS Outpatient FER RUCKER APRN [id number] 08/06/2013 08:20:00 08/06/2013 23:59:59 [facility] [id number] 07/06/2013 08:09:00 07/06/2013 23:59:59 CLS Outpatient RADHIKA FORBES DO Joanie [id number] 06/29/2013 09:11:00 06/29/2013 23:59:59 CLS Outpatient ALAN GUTIERREZ MD [id number] 05/16/2013 16:31:00 05/16/2013 23:59:59 CLS Outpatient RIVER CURRYMADDIE Claudia [id number] 02/23/2013 15:53:00 02/23/2013 23:59:59 CLS Outpatient WAYNE ANTOINETTEDAYNA [id number] 09/25/2012 16:32:00 09/25/2012 23:59:59 CLS Outpatient [id number] 06/15/2012 08:51:00 06/15/2012 23:59:59 CLS Outpatient DIPAK WARNER APRN [id number] 04/25/2012 16:02:00 04/25/2012 23:59:59 CLS Outpatient DIPAK WARNER APRN [id number] 01/03/2013 16:32:00 Document Registration [id number] 12/06/2012 08:29:00 Document Registration [id number] 10/24/2012 16:00:00 Document Registration
--- OUTSIDE RECORDS SUMMARY | 2017-07-25 06:21 | XMS REPORT ---
Author Author DIPAK WARNER Organization [employer] Address Unknown Phone Unavailable Care Team Providers Care Buffing Wheel Inspector Name Role Phone DIPAK WARNER CP Unavailable Allergies No Known Allergies Problems Problem Type Condition Code Onset Dates Condition Status Problem Other screening breast examination V76.19 Active Problem Unspecified disease of the jaws 526.9 Active Problem Major depressive disorder, recurrent episode, moderate 296.32 Active Problem Simple or unspecified chronic serous otitis media 381.10 Active Problem Screening for malignant neoplasm of the cervix V76.2 Active Problem Dysfunction of Eustachian tube 381.81 Active Problem Unspecified episodic mood disorder 296.90 Active Problem Generalized anxiety disorder 300.02 Active Problem Routine general medical examination at health care facility V70.0 Active Problem Obesity, unspecified 278.00 Active Problem Urinary tract infection, site not specified 599.0 Active Problem Sprain and strain of unspecified site of foot 845.10 Active Problem Excessive or frequent menstruation 626.2 Active Problem Hallux valgus (acquired) 735.0 Active Problem Chest pain, unspecified 786.50 Active Medications Medication Code System Code Instructions Start Date End Date Status [facility] [id number] 8-90MG TAKE TWO TABLETS BY MOUTH TWICE DAILY Results No Known Results Summary Purpose [employer] Submission
--- OUTSIDE RECORDS SUMMARY | 2017-07-25 06:21 | XMS REPORT ---
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 Active Problem Excessive and frequent menstruation N92.0 Active Medications Medication Code System Code Instructions Start Date End Date Status Dosage Contrave [facility] [id number] 8-90MG TAKE TWO TABLETS BY MOUTH TWICE DAILY Amitriptyline HCl [facility] [address]-02 10 mg Orally Once a day 2 tablets Procedures Procedure Coding System Code Date Office Visit, Est Pt., Level 3 CPT-4 73452 November 11, 2015 Vital Signs Date/Time: November 11, 2015 Temperature 99.0 F Weight 199.4 lbs Height 70 in BMI 28.61 Index Blood Pressure Diastolic 80 mmHg Blood Pressure Systolic 138 mmHg Cardiac Monitoring Heart Rate 84 bpm Results No Known Results Summary Purpose [employer] Submission
--- OUTSIDE RECORDS SUMMARY | 2017-07-25 06:21 | XMS REPORT ---
Author Author ARLEEN ESPINOZA [facility] [employer] Address Unknown Phone Unavailable Care Team Providers Care Emergency Department Physician Name Role Phone ARLEEN ESPINOZA CP Unavailable Allergies No Known Allergies Problems [...] Problem Episodic mood disorder F39 Active Assessment Family history of diabetes mellitus Z83.3 Active Assessment BMI 27.0-27.9,adult Z68.27 Active Assessment Well woman exam Z01.419 Active Problem Encounter for dental examination Z01.20 Active Medications No Known Medications Procedures Procedure Coding System Code Date GLYCATED HEMOGLOBIN TEST CPT-4 45058 Aug 29, 2015 COMPLETE CBC W/AUTO DIFF WBC CPT-4 86314 Aug 29, 2015 ASSAY THYROID STIM HORMONE CPT-4 72831 Aug 29, 2015 VENIPUNCT, ROUTINE* CPT-4 58931 Aug 29, 2015 COMPREHEN METABOLIC PANEL CPT-4 70414 Aug 29, 2015 Results Name Result Date Reference Range Unit Abnormality Flag ROUTINE VENIPUNCTURE Summary Purpose [employer] Submission
[2017-07-25] MEDS ORDERED: ceFAZolin INJECTION 1,000 MG in NS (IVPB) 50 ML IV ONE (06:30)
[2017-07-25] MEDS ORDERED: SEVOFLURANE (ULTANE) 15 ML INHAL SOLN ONE ×3 (06:41→08:19)
[2017-07-25] MEDS ORDERED: MIDAZOLAM 2 MG/2 ML (VERSED) VIAL ONE (06:41)
[2017-07-25] MEDS ORDERED: fentaNYL INJECTION 100 MCG/2 ML AMP ONE ×2 (06:41→08:21)
[2017-07-25] MEDS ORDERED: proPOfol 200 MG/20 ML (DIPRIVAN) VIAL IV ONE (06:41)
[2017-07-25] MEDS ORDERED: ONDANSETRON 4 MG/2 ML (SDV) Z0FRAN ONE (06:41)
[2017-07-25] MEDS ORDERED: LIDOCAINE PF 2% 5 ML (XYLOCAINE) VIAL ONE (06:41)
[2017-07-25] MEDS ORDERED: DEXAMETHASONE 10 MG/ML (DECADRON) 1 ML VIAL ONE ×2 (06:41→07:32)
[2017-07-25] MEDS: LACTATED RINGERS 1,000 ML IV PRN ×2 (06:45→08:32)
[2017-07-25] MEDS ORDERED: NS (IVPB) 50 ML ONE (06:53)
[2017-07-25] MEDS ORDERED: ceFAZolin 1,000 MG (ANCEF) VIAL ONE (06:53)
[2017-07-25] MEDS ORDERED: BUPIVACAINE 0.5% 30 ML (SENSORCAINE) VIAL ONE (07:32)
--- NOTE | 2017-07-25 07:36 | Progress Note-Pre Operative ---
Pre-Operative Progress Note H&P Reviewed The H&P was reviewed, patient examined and no changes noted. Date Seen by Provider: Jul 25, 2017 Time Seen by Provider: 07:36 Date H&P Reviewed: Jul 25, 2017 Time H&P Reviewed: 07:36 Pre-Operative Diagnosis: Hallux Abductovalgus, right DAILY BECKWITH DPM Jul 25, 2017 7:36 am
[2017-07-25] MEDS ORDERED: PHENYLEPHRINE 100 MCG/ML 10 ML (ANESTHESIA) SYR ONE (08:58)
[2017-07-25] MEDS ORDERED: LACTATED RINGERS 1,000 ML IV SCH (09:03)
--- NOTE | 2017-07-25 09:03 | Progress Note-Post Operative ---
Post-Operative Progess Note Surgeon (s)/Ruby Software Developer (s) Surgeon DAILY BECKWITH DPM Ruby Software Developer: NONE Pre-Operative Diagnosis Hallux Abductovalgus, right Post-Operative Diagnosis Same Procedure & Operative Findings Date of Procedure 07/25/17 Procedure Performed/Findings Modified Kamron-Bharagv Bunionectomy right Anesthesia Type General Estimated Blood Loss Estimated blood loss (mL): minimal Specimens/Packing Specimens Removed none DAILY BECKWITH DPM Jul 25, 2017 9:03 am
[2017-07-25] MEDS ORDERED: morphine INJ 10 MG/ML 1ML (SYR OR VIAL) IVP PRN (09:15)
[2017-07-25] MEDS ORDERED: MEPERIDINE (DEMEROL) INJ 50 MG/ML IVP PRN (09:15)
[2017-07-25] MEDS ORDERED: ONDANSETRON 4 MG/2 ML (SDV) Z0FRAN IVP PRN ×2 (09:15)
[2017-07-25] MEDS ORDERED: HYDROcodone/APAP 5 MG/325 MG (LORTAB) TAB PO PRN (09:15)
[2017-07-25] MEDS ORDERED: HYDR-3454 PO (09:45)
[2017-07-25 10:05] VITALS: BP 103/69
[2017-07-25 10:35] VITALS: BP 111/66
[2017-07-25 11:05] VITALS: BP 103/59
[2017-07-25 11:15] VITALS: BP 103/59
--- NOTE | 2017-07-25 11:30 | Physical Therapy Progress Note ---
Therapy Progress Note Patient has crutches established and reports she is functional without difficulty. Spouse present and confirms. No skilled PT indicated. RUTH TITUS PT Jul 25, 2017 11:30
--- NOTE | 2017-07-25 11:32 | Diagnostic Imaging Report ---
INDICATION: Postop. FINDINGS: Postoperative changes to the distal first metatarsal and the shaft of the proximal phalanx have been performed. Postoperative air and swelling as expected findings are noted. No suspicious foreign body. IMPRESSION: Postoperative changes of repair of hallux rigidus. No unexpected finding. No pathological foreign body. Dictated by: Dictated on workstation # [id number]
--- NOTE | 2017-07-25 20:17 | OPERATIVE REPORT ---
DATE OF SERVICE: SURGEON: Daily Beckwith DPM. PREOPERATIVE DIAGNOSIS: Hallux abductovalgus metatarsal primus varus, right foot. POSTOPERATIVE DIAGNOSIS: Hallux abductovalgus metatarsal primus varus, right foot. PROCEDURE: Modified Kamron-Bhargav bunionectomy, right foot. WOUND CLASS: Clean. ANESTHESIA: General. HEMOSTASIS: Pneumatic thigh tourniquet at 300 mmHg. INDICATION: This 36-year-old female presents complaining of a painful bunion right foot. Conservative therapy has met with unsatisfactory results and the patient is agreeable to surgical intervention after risks and complications were discussed at length. No guarantees were extended to the patient and she is willing to proceed. DESCRIPTION OF PROCEDURE: The patient was brought back to the operating table, placed in secured supine position. General anesthetic was then induced. Appropriate timeout was performed. A pneumatic thigh tourniquet was placed on the right lower extremity over several layers of padding. The right foot was then prepped and draped in normal sterile manner. The right foot was then elevated and allowed to exsanguinate after which the tourniquet was inflated to 250 mmHg. Attention was then directed to the dorsal aspect of the first metatarsophalangeal joint where a 7 cm longitudinal linear incision was created. The incision was deepened in the same plane with great care to identify and retract all vital neurovascular structures. All the necessary blood vessels were cauterized as encountered. The incision was deepened down to the capsular tissue where a longitudinal capsulotomy was performed. The capsular tissue was reflected mediolaterally exposing the medial eminence of the first metatarsal head, which was resected utilizing a power sagittal saw. Next, blunt dissection was carried out into the first intermetatarsal space where a lateral release was performed. The conjoint tendon of the adductor hallucis was released as well as the lateral capsulorrhaphy and the fibular sesamoidal ligament was also released. The hallux was then forcibly adducted releasing any additional fibers holding it in its abnormal position. Attention was redirected to the medial aspect of the first metatarsal where a Chevron-type osteotomy was performed from medial to lateral at the surgical neck of the first metatarsal head. The capital fragment was translocated laterally and fixated in its corrected position utilizing a 0.062 threaded K-wire from dorsal proximal to plantar distal with great care not to penetrate the articular cartilage. The K-wire was cut flush with the dorsal aspect of the first metatarsal. The head was further contoured and smooth with a power sagittal saw and power bur. Attention was then directed to the diaphysis of the proximal phalanx of the right hallux where subperiosteal dissection was carried out. A wedge of bone was resected with the base medial and lateral cortices held intact. Once the wedge of bone was resected, the gap was closed reducing the angulation of the right hallux. Two remotely piloted vehicle controller holes were created at the dorsal medial aspect of the osteotomy where a 28-gauge monofilament wire was passed through these remotely piloted vehicle controller holes securing the osteotomy in a closed position. Excellent bony apposition and fixation was appreciated at this time. The wound was flushed with copious amounts of normal saline throughout the procedure. A hypertrophic dorsal medial condyle to the head of the proximal phalanx was noted and reduced utilizing a power rasp. The wound was flushed with copious amounts of normal saline. Closure was then performed in layers. Deep closure was performed with 3-0 Vicryl, superficial with 4-0 Vicryl, skin closed with 4-0 Prolene in a horizontal mattress type stitch. The patient tolerated the anesthesia and procedure well and was transported from the operating room to the recovery area with vital signs stable and vascular status intact to all digits of the right foot. She was given a prescription for Keflex as well as Vicodin postoperatively. She is to be nonweightbearing on the right lower extremity with crutches. She is to follow up in my office in 10 days' period of time or sooner if necessary. Job ID: [id number] DocumentID: [id number] Dictated Date: 07/25/2017 09:26:15 Authorization Representative Date: 07/25/2017 20:16:18 Dictated By: DAILY BECKWITH DPM
== END 2017-07-25 11:45 | disposition home or self-care (01) ==
LOC: SDC 06:16
PROVIDERS: ATTEND Podiatrist Foot & Ankle Surgery
DX: M20.11 Hallux valgus (acquired), right foot (principal); G43.909 Migraine, unspecified, not intractable, without status migrainosus; Z79.899 Other long term (current) drug therapy
CPT/HCPCS: 73620; 84703